=== PATIENT | female | born 1990 | race Caucasian/White ===

== ENCOUNTER 2020-10-23 19:08 | Emergency (ER) | payer MEDICAID, OTHER ==
[~2020-10-23] VITALS: Ht 162.6 cm; Wt 61.0 kg
[2020-10-23] MEDS ORDERED: LIDOCAINE-MPF 1%, 5ML ONE (19:50)
[2020-10-23] MEDS ORDERED: DIPH,PERTUSS(ACELL),TET VAC/PF 0.5 ML IM-VACC ONE ×2 (19:51→20:00)
[2020-10-23] MEDS ORDERED: LIDOCAINE-MPF 1%, 5ML INFIL ONE (20:00)
[2020-10-23] MEDS ORDERED: NEOSPORIN OINT. PKT 1 PACKET ONE (20:30)
[2020-10-23 20:34] VITALS: BP 118/68
== END 2020-10-23 20:37 | disposition home or self-care (01) ==
LOC: ED 20:00
DX: S61.012A Laceration without foreign body of left thumb without damage to nail, initial encounter (principal); W26.0XXA Contact with knife, initial encounter; Y93.89 Activity, other specified; Y92.009 Unspecified place in unspecified non-institutional (private) residence as the place of occurrence of the external cause; Y99.8 Other external cause status
CPT/HCPCS: 12041; 90471; 90715; 99284